=== PATIENT | female | born 1935 | race Caucasian/White ===

== ENCOUNTER → 2016-08-25 | Outpatient (CLI) | payer OTHER, BC ==
[~2016-08-25] MED LIST: ANTIVERT25 MG PO; ATORVASTATIN CA40 MG PO; BAYER CHEWABLE81 MG PO; CALCIUM 500 +1 EAC5 PO; CARDIZEM CD120 MG PO; CENTRUM SILVER1 EAC4 PO; COUMADIN 3 MG TA3 M1 PO; DEMADEX20 MG PO; ELIQUIS5 MG PO; LEXAPRO 10 MG T10 M2 PO; LIPITOR80 MG PO; METOPROLOL SUCC50 MG PO; MIRALAX17 GM PO; NIACIN 500 MG500 M1 PO; NIACIN500 MG PO; OXYGEN MISCELL; PACERONE 200 M200 M1 PO; PROBIOTIC1 EAC2 PO; PROLIA60 MG/1 ML SUBQ; SPIRIVA INH; TYLENOL325 MG PO; VERAPAMIL E.R240 M1 PO; VITAMIN D1000 UNI1 PO; VITAMIN D3400 UNIT PO; ZEGERID OTC 201 EACH PO
== END ==
LOC: RAD 12:44
DX: J44.9 Chronic obstructive pulmonary disease, unspecified (principal)

== ENCOUNTER → 2016-10-07 | Outpatient (CLI) | payer OTHER, BC ==
--- NOTE | ~2016-10-07 | SLE ---
[facility] [address] [address] POLYSOMNOGRAPHY STUDY Name: JORGE MADERA Room #: REG [facility]#: [id number] Admission: 10/07/16 Attend Phys: Yessenia Delong MD Discharge: Date of : 33 Report #: [id number] THIS REPORT FOR: //name// CC: Yessenia Navarro MD INDICATIONS: The patient with a history of COPD, on 4 liters at night; positive fatigue, snoring and daytime somnolence; paroxysmal atrial fibrillation. COMMENTS: Started on room air for 15.7 minutes, no sleep was seen; then on 1 liter, the patient was seen for 153 minutes and then at 3-1/2 liters for 362 minutes of which 37% was in sleep. Sleep efficiency 25%. Central apnea 0, obstructive apnea 0, hypopnea 2. Apnea-hypopnea index 0.9 events per sleep hour. Non-REM AHI 0.6, REM AHI 1.7. Supine AHI 0, right lateral 2 events per sleep hour. 12% of time in snoring. Periodic limb movement with arousal index of 46 events per sleep hour. Low oxygen saturation 90%. IMPRESSION: 1. Periodic limb movement with arousal index 46 events per sleep hour.G47.61 2. Significant snoring. 3. This study does not suggest obstructive sleep apnea. 4. Wheezing noted and multiple bathroom interruptions. 5. Usually sleeps in a recliner. SUGGESTIONS: 1. In addition to specific therapy, the patient should be cautioned regarding driving or operating dangerous machinery unless fully alert. 2. Further discussion regarding oxygen use per Dr. Navarro; on this night, 3-1/2 liters was used to maintain saturation. 3. Daytime ABG and lung function and x-ray are recommended. 4. If signs and symptoms not improved with therapy, further evaluation is recommended. Please do not hesitate to contact me if I may be of further assistance. <ELECTRONICALLY SIGNED> By: Yessenia Delong MD 10/15/16 1455 2340 0011 Yessenia Delong MD /nt
== END ==
LOC: SLEEPLAB 15:43
DX: G47.33 Obstructive sleep apnea (adult) (pediatric) (principal)

== ENCOUNTER 2016-10-22 14:21 | Inpatient (IN) | payer OTHER, BC ==
[~2016-10-22] VITALS: Ht 152.4 cm; Wt 64.2 kg
--- NOTE | ~2016-10-22 | TEE ---
[facility] [address] [place] [address] TRANSESOPHAGEAL ECHOCARDIOGRAM Name: JORGE MADERA Room #: 450-P [facility] IN M.R.#: [id number] Admission: 10/22/16 Attend Phys: Brady Alan, Discharge: Date of : 34 Date of Service: 10/27/16 0906 Report #: [id number] THIS REPORT FOR: //name// APPROVED REPORT Study performed: 10/27/2016 07:50:55 EXAM: Comprehensive 2D, Doppler, and color-flow Echocardiogram Patient Location: [facility] Room #: [facility] Status: routine BSA: 1.61 HR: 60 bpm BP: 135/47 mmHg Rhythm: Pacemaker Other Information Study Quality: Adequate Indications Rule out endocarditis. Hx: pacemaker Procedure After obtaining informed consent, patient underwent transesophageal echo in the [employer]. Type of Sedation : Conscious Sedation Sedation was administered by Silvia Higuera RN. Sedation was achieved intravenously with: Versed (2) Fentanyl (50) Transesophageal probe was inserted and advanced into esophagus without difficulty by Seb Soni MD. The GILA was performed without complications. Throughout the procedure, the blood pressure, pulse oximetry, cardiac rhythm, and rate were monitored. The patient tolerated the procedure without adverse effects. Recovery from conscious sedation was uneventful and vital signs were stable. Left Ventricle The left ventricle is normal size. There is normal LV segmental wall motion. Left ventricular systolic function is normal. LVEF is 60-65%. Right Ventricle [facility] [address] [place] [address] TRANSESOPHAGEAL ECHOCARDIOGRAM Name: JORGE MADERA Room #: 450-P ADM IN M.R.#: [id number] Admission: 10/22/16 Attend Phys: Brady Alan, Discharge: Date of : 34 Date of Service: 10/27/16 0906 Report #: [id number] The right ventricle is normal size. The right ventricular systolic function is normal. Atria Left atrium is dilated. No masses or clots in left atrium or left atrial appendage. Right atrium is dilated. Aortic Valve Aortic valve is calcified, trileaflet. Trace aortic regurgitation. Mild aortic stenosis per transthoracic echo. Mitral Valve Thickened, calcified mitral leaflets. Moderate mitral annular calcification. Calcified submitral apparatus. Previously seen mobile, calcified mass consistent with calcified submitral chordal structure Mild-moderate mitral regurgitation. Mild to moderate mitral stenosis per transthoracic echo. Tricuspid Valve The tricuspid valve is normal in structure. Pulmonic Valve The pulmonary valve is normal in structure. Great Vessels The aortic root is normal in size. Mild to moderate calcific atherosclerotic changes Pericardium There is no pericardial effusion. Critical Notification Physician Notified <Conclusion> Left ventricular systolic function is normal. There is normal LV segmental wall motion. LVEF 60-65%. Left atrium is dilated. No masses or clots in left atrium or left atrial appendage. Aortic valve is calcified, trileaflet. Trace aortic regurgitation. Mild aortic stenosis per transthoracic echo. Thickened, calcified mitral leaflets. Moderate mitral annular calcification. Calcified submitral apparatus. Previously seen mobile, calcified mass consistent with calcified submitral chordal structure Mild-moderate mitral regurgitation. Mild to moderate mitral stenosis [facility] [address] [place] [address] TRANSESOPHAGEAL ECHOCARDIOGRAM Name: JORGE MADERA Room #: 450-P [facility] IN [facility]#: [id number] Admission: 10/22/16 Attend Phys: Brady Alan, Discharge: Date of : 34 Date of Service: 10/27/16905 Report #: [id number] per transthoracic echo. There is no pericardial effusion. <ELECTRONICALLY SIGNED> By: Seb Soni MD, FACC 10/27/16905 5 5 Seb Soni MD, FACC /INF
--- NOTE | ~2016-10-22 | P ---
[facility] [place] [address] PROCEDURE REPORT Name: JORGE MADERA Room #: 450-P ADM IN M.R.#: [id number] Admission: 10/22/16 Attend Phys: Brady Alan DO Discharge: Date of : 34 Report #: [id number] THIS REPORT FOR: //name// CC: Quan March DO DATE OF SERVICE: 10/23/2016 DATE OF SERVICE: 10/23/2016 PROCEDURE PERFORMED: Upper endoscopy. HISTORY OF PRESENT ILLNESS: The patient is an 81-year-old female with a history of COPD who was admitted for increasing shortness of breath. On admission, she was noted to have hemoglobin of 7.6, today this fell to 6.7. She denies any obvious bright red blood per rectum or melena, no previous history of GI bleed. She did have a colonoscopy in 2009, which showed diverticulosis, but otherwise normal. She does report ibuprofen at times, she is on Eliquis, last dose being yesterday. Plan is for EGD. DESCRIPTION OF PROCEDURE: The risks and benefits of the procedure were explained to the patient, those risks including but not limited to bleeding, perforation, the risk of sedation. She understood these risks and gave informed consent. Sedation was given using ketamine and propofol per anesthesia. Next, using a standard [facility] upper endoscope, the scope was placed in the patient's mouth and advanced under direct vision through the esophagus, stomach and into the second portion of the duodenum. The esophagus was normal throughout. The GE junction was normal. Overall, the gastric mucosa was normal. No evidence of ulcerations or erosions. No blood was noted throughout the exam today. The pylorus was normal and patent. The duodenal bulb, first and second portion were all normal. The scope was then withdrawn and the procedure terminated. The patient tolerated the procedure well. IMPRESSION: Normal upper endoscopy. RECOMMENDATIONS: 1. Agree with transfusion, which has been ordered for today. 2. Hemoccult test stools, if positive, may need to consider colonoscopy or small bowel workup in the near future. [facility] [address] [place] [address] PROCEDURE REPORT Name: JORGE MADERA Room #: 450-P [facility] IN M.R.#: [id number] Admission: 10/22/16 Attend Phys: Brady Alan DO Discharge: Date of : 34 Report #: [id number] Thank you for allowing me to participate in her care. <ELECTRONICALLY SIGNED> By: Jos Antonio MD 10/28/16 0954 1130 1231 Jos Antonio MD /nt
--- NOTE | ~2016-10-22 | S ---
[facility] [place] [address] [address] [place] [address] SURGICAL PATH RPT PROCEDURE Name: FELECIA MADERA Room #: 450-P ADM IN M.R.#: [id number] Admission: 10/22/16 Date of : 34 Discharge: Report #: [id number] Path Case #: [id number] PATHOLOGY REPORT COLLECTION DATE: 10/26/2016 RECEIVED DATE: 10/26/2016 SUBMITTING PHYS: Dr. Brady Alan OTHER PHYS: Dr. Quan Winchester SPECIMEN(S) RECEIVED: A.Peripheral smear * * * * * * * * * * * * FINAL DIAGNOSIS: Peripheral blood smear: - Mild to moderate microcytic anemia. (see comment) COMMENT: Overall, the peripheral blood has mild to moderate microcytic anemia. The WBC and platelet counts are within the normal reference ranges. The WBC count is borderline mildly elevated with a borderline neutrophilia. The etiology of the findings is unclear entirely on slide review. Potential causes of microcytic anemia include iron deficiency and thalassemia. Correlation with clinical history and additional laboratory data is recommended. (CLW:; 10/27/2016) PATHOLOGIST: Evelyne Ryan M.D. REPORT ELECTRONICALLY SIGNED BY: Evelyne Ryan M.D. DATE/TIME: 10/27/2016 23:00 * * * * * * * * * * * * MICROSCOPIC DESCRIPTION: CBC Data (10/26/16): WBC 10,400 /uL, RBC 4.17, hemoglobin 9.9 g/dL, hematocrit 31.9%, MCV 76.4 fL, MCH 23.9 pg, MCHC 31.2 g/dL, RDW 21.5%. Platelet count 285,000 /uL. Manual white blood cell differential: segs 79%, lymphs 11%, monos 8%, and eos 2%. Peripheral Blood Smear: Cytomorphological examination of the Rodriguez's stained peripheral blood smear confirms the provided data. Red blood cells show mild to moderate microcytic anemia with mild anisocytosis. No significant poikilocytosis is identified. No schistocytes or microspherocytes are seen. White blood cells are predominantly segmented neutrophils and are without significant dyspoiesis or significant left shift. Lymphocytes are predominantly small, round, and mature appearing with condensed chromatin and scant cytoplasm with admixed large granular lymphocytes. Monocytes are mature. Platelets are adequate in number [address] [address] SURGICAL PATH RPT PROCEDURE Name: FELECIA MADERA Room #: 450-P ADM IN M.R.#: [id number] Admission: 10/22/16 Date of : 34 Discharge: Report #: [id number] Path Case #: [id number] and mainly normal in morphology with rare larger platelets noted. GROSS PATHOLOGY: Received are two Rodriguez's stained peripheral blood smears and two unstained peripheral blood smears all labeled "Felecia Madera." (CLW:; 10/27/2016) CLINICAL HISTORY: 81 year-old woman with anemia. Morphologic review of the peripheral blood smear is requested by the patient's physician. INITIAL CPT CODE(S): A; NC Professional services performed by [facility] at [facility] [address], [place] [address] Technical services performed by [facility] at [address] [place] [address], [address], [place] [address]. [facility] [address] [place] [address] PHONE: [phone] DIRECTOR: Valdez Rosas M.D. * * * END OF REPORT * * *
--- NOTE | ~2016-10-22 | 2DMMODE ---
[facility] [address] [place] [address] 2 D/M-MODE ECHOCARDIOGRAM Name: JORGE MADERA Room #: 450-P [facility] IN M.R.#: [id number] Admission: 10/22/16 Attend Phys: Brady Alan, Discharge: Date of : 34 Date of Service: 10/23/16 1706 Report #: [id number] THIS REPORT FOR: //name// APPROVED REPORT Study performed: 10/23/2016 13:55:11 EXAM: Comprehensive 2D, Doppler, and color-flow Echocardiogram Patient Location: Bedside Room #: 450 Status: routine BSA: 1.61 HR: 60 bpm BP: 112/46 mmHg Other Information Study Quality: Good Indications Congestive Heart Failure COPD Atrial Fibrillation Pacemaker 2D Dimensions RVDd: 33.14 mm LVEF(%): 67.45 (>50%) IVSd: 10.68 (7-11mm) LVOT Diam: 17.99 (18-24mm) LVDd: 49.12 mm PWd: 8.86 (7-11mm) Ascending Ao: 25.86 (22-36mm) LVDs: 30.67 (25-40mm) Aortic Root: 27.10 mm IVC: 19.00 mm Rubio's LVEF: 67.45 % Volumes Left Atrial Volume (Systole) Single Plane 4CH: 122.30 mL Single Plane 2CH: 122.71 mL LA ESV Index: 85.00 mL/m2 Aortic Valve AoV Peak Yasmany.: 2.88 m/s AO Peak Gr.: 33.29 mmHg LVOT Max P.12 mmHg AO Mean Gr.: 17.87 mmHg LVOT Mean P.91 mmHg AO V2 Mean: 1.98 m/s LVOT Max V: 1.33 m/s AO V2 VTI: 74.80 cm LVOT Mean V: 1.04 m/s KINJAL (VTI): 1.26 cm2 LVOT V1 VTI: 36.99 cm [facility] Mobile Location, [place] [address] 2 D/M-MODE ECHOCARDIOGRAM Name: JORGE MADERA Room #: 450-P [facility] IN .R.#: [id number] Admission: 10/22/16 Attend Phys: Brady Alan, Discharge: Date of : 34 Date of Service: 10/23/16 1706 Report #: [id number] KINJAL Vmax: 1.17 cm2 SV (LVOT): 94.00 mL Mitral Valve MV Peak Gr.: 24.77 mmHg MV Mean Gr.: 7.70 mmHg E/A Ratio: 2.3 MV Decel. Time: 403.56 ms MV E Max Yasmany.: 1.90 m/s MV A Yasmany.: 0.84 m/s MV Max Yasmany.: 2.49 m/s MV Mean Yasmany.: 1.23 m/s MV VTI: 758.70 mm MVA VTI: 123.90 mm2 MV PHT: 117.03 ms MVA (PHT): 2.29 cm2 IVRT: 129.18 ms Pulmonary Valve PV Peak Yasmany.: 1.11 m/s PV Peak Gr.: 4.97 mmHg Pulmonary Vein P Vein S: 0.49 m/s P Vein A: 0.24 m/s P Vein D: 0.50 m/s P Vein A Dur.: 138.4 msec P Vein S/D Ratio: 0.98 Tricuspid Valve TR Peak Yasmany.: 3.43 m/s TR Peak Gr.: 47.00 mmHg PA Pressure: 52.00 mmHg Left Ventricle The left ventricle is normal size. There is normal LV segmental wall motion. There is normal left ventricular wall thickness. The left ventricular systolic function is normal. The left ventricular ejection fraction is within the normal range. LVEF is 60-65%. Left atrial pressure is elevated. Right Ventricle The right ventricle is normal size. The right ventricular systolic function is normal. Atria Left atrium is dilated. Right atrium is dilated. Aortic Valve Aortic valve is calcified, trileaflet. Trace aortic regurgitation. [facility] [address] [place] [address] 2 D/M-MODE ECHOCARDIOGRAM Name: JORGE MADERA Room #: 450-P [facility] IN M.R.#: [id number] Admission: 10/22/16 Attend Phys: Brady Alan, Discharge: Date of : 34 Date of Service: 10/23/16 1706 Report #: [id number] Calculated aortic valve area is 1.2 cm2 with maximum pressure gradient of 33 mmHg and mean pressure gradient of 18 mmHg. Mitral Valve Dense mitral annular calcification. Calcified leaflets. Mobile, irregular bordered, oval and densely calcified mass on posterior mitral leaflet consistent with vegetation. Calcified, disrupted submitral chordal structure also among differential condiserations. Mild mitral regurgitation. Mild to moderate mitral stenosis. (Peak gradient 25mm, mean 8mm) Tricuspid Valve The tricuspid valve is normal in structure. Trace tricuspid regurgitation. Pulmonic Valve The pulmonary valve is normal in structure. Trace pulmonic regurgitation. Great Vessels The aortic root is normal in size. IVC is normal in size and collapses >50% with inspiration. Pericardium There is no pericardial effusion. Critical Notification Physician Notified <Conclusion> The left ventricular systolic function is normal. There is normal LV segmental wall motion. LVEF 60-65%. Both atria are dilated. Aortic valve is calcified, trileaflet. Calculated aortic valve area is 1.2 cm2 with maximum pressure gradient of 33 mmHg and mean pressure gradient of 18 mmHg. Mild stenosis Dense mitral annular calcification. Calcified leaflets. Mobile, irregular bordered, oval and densely calcified mass on posterior mitral leaflet consistent with vegetation. Calcified, disrupted submitral chordal structure also among differential condiserations. Mild mitral regurgitation. Mild to moderate mitral stenosis. (Peak gradient 25mm, mean 8mm) [address] [address] 2 D/M-MODE ECHOCARDIOGRAM Name: JORGE MADERA Room #: 450-P [facility] IN M.R.#: [id number] Admission: 10/22/16 Attend Phys: Brady Alan, Discharge: Date of : 34 Date of Service: 10/23/161705 Report #: [id number] Pulmonary artery pressure of 55mmHg There is no pericardial effusion. <ELECTRONICALLY SIGNED> By: Seb Soni MD, FACC 10/23/161705 05 05 Seb Soni MD, FACC /INF
--- NOTE | ~2016-10-22 | EKG ---
[address] [place] [address] ELECTROCARDIOGRAM REPORT Name: JORGE MADERA Room #: 450-P ADM IN M.R.#: [id number] Admission: 10/22/16 Attend Phys: Brady Alan DO Discharge: Date of : 34 Report #: [id number] THIS REPORT FOR: //name// [facility] ED Test Date: 2016-10-22 Test Time: 16:06:22 Pat Name: JORGE MADERA Department: Room: [facility] Gender: F [employer] Operator: [id number] : 1935 Requested By: Iggy Crane Order Number: [id number] MD: Seb Soni Measurements Intervals [place] Rate: 60 P: 111 [place]: 145 QRS: -77 QRSD: 166 T: 100 QT: 511 QTc: 511 Interpretive Statements A-V dual-paced complexes w/ some inhibition No further analysis attempted due to paced rhythm Compared to ECG 12/02/2015 21:21:17 Atrial-sensed ventricular-paced complex(es) or rhythm no longer present Electronically Signed On 10-23-2016 8:11:42 CDT by Seb Soni [email or web address] <ELECTRONICALLY SIGNED> By: Seb Soni MD, [facility] 10/23/16 0811 1606 1606 Seb Soni MD, [facility] /EPI
--- NOTE | ~2016-10-22 | HC ---
[facility] [place] [address] CONSULTATION Name: JORGE MADERA Room #: 450-P [facility] IN M.R.#: [id number] Admission: 10/22/16 Attend Phys: Brady Alan DO Discharge: 10/28/16 Date of : 34 Report #: [id number] THIS REPORT FOR: //name// CC: Quan Alan DATE OF SERVICE: 10/28/2016 HISTORY OF PRESENT ILLNESS: The patient is an 81-year-old white female with history of COPD, congestive heart failure, acute renal insufficiency, admitted with increased shortness of breath. She has been treated for her congestive heart failure. She was noted to have symptomatic microcytic anemia with GI involved. She had sick sinus syndrome and has had prior pacemaker placement. We are seeing her in rehabilitation medicine consultation. PAST MEDICAL HISTORY: Includes hypertension, rheumatic fever in 1944, pelvic prolapse, pacemaker, COPD, AFib, hyperlipidemia, tonsillectomy. She was on oxygen premorbidly. MEDICATIONS: Please see the full medication listing. ALLERGIES: No known drug allergies. HABITS: Former smoker, 50 pack-year history. No history of alcohol abuse. SOCIAL HISTORY: Lives in a house alone, one step, was on O2 premorbidly, used a walker. She does have an involved daughter and son. REVIEW OF SYSTEMS: Did not offer any current complaints of chest pain, shortness of breath, or abdominal discomfort. No focal extremity pain complaints. PHYSICAL EXAMINATION: GENERAL: Pleasant 81-year-old white female, appeared little younger than stated age. VITAL SIGNS: Her last recorded temperature 98.3, pulse 60, respirations 18, and blood pressure 149/59. NEUROLOGIC: She is alert, pleasant, and appears to be a good historian. Facies are symmetric. Nasal prong O2 is in place. Functional range of motion of both upper extremities with strength grade 4/5 to 4+/5. DTRs are trace to 1. Lower extremities, no focal calf swelling, no distal lower extremity edema, functional range of motion with strength grade 4+/5. Tone appeared intact. No clonus. She was contact guard with sit to stand. Gait was 130 feet. She did need a little assistance without a device. Physical therapy noted that she progressed gait and no assist device x 120 feet with contact guard to min assist for balance. Therapy thought that she may benefit from the use of a walker upon [address] [address] CONSULTATION Name: SANTYJORGE Room #: 450-P [facility] IN ..#: [id number] Admission: 10/22/16 Attend Phys: Brady Alan DO Discharge: 10/28/16 Date of : 34 Report #: [id number] initially returning home and that she would benefit from home healthcare therapies. ASSESSMENT: An 83-year-old female with the following problem list: 1. Generalized weakness and debilitation, which has improved. 2. Acute on chronic diastolic congestive heart failure. 3. Atrial fibrillation. 4. Sick sinus syndrome. 5. Symptomatic microcytic anemia. 6. Renal insufficiency. 7. Chronic obstructive pulmonary disease with chronic home O2 use. PLAN: See above physical therapy input. She is progressing with her functional mobility and supportive family. I would anticipate she should be able to return back to the home setting with the walker initially and home health care. Note that her discharge plans are already underway. Thank you for asking us to assist in this patient's care. By: 1137 0218 Smith Pollard MD /PMT
[2016-10-22 14:21] VITALS: BP 125/39
[2016-10-22 16:04] LABS: HEMATOCRIT 24.7 % (37.0-47.0); HEMOGLOBIN 7.6 gm/dL (12.0-15.0); MCH 21.7 pg (26.0-34.0); MCHC 30.6 g/dL (28.0-37.0); MCV 71.1 fL (80.0-100.0); PLATELET COUNT 358 thou/uL (150-400); RBC 3.48 mil/uL (4.20-5.00); RDW 19.2 % (10.5-14.5); WBC 9.4 thou/uL (4.0-11.0)
[2016-10-22 16:12] LABS: ANION GAP 6 mmol/L (7-16); BUN 29 mg/dL (7-18); CHLORIDE 99 mmol/L (98-107); CO2 32 mmol/L (21-32); CREATININE 1.1 mg/dL (0.6-1.0); GLUCOSE 103 mg/dL (74-106); POTASSIUM 3.5 mmol/L (3.5-5.1); SODIUM 137 mmol/L (136-145)
[2016-10-22 16:13] LABS: MANUAL DIFF YES
[2016-10-22 16:21] LABS: TROPONIN-I < 0.04 ng/mL (<0.04-0.07)
[2016-10-22 16:24] LABS: ABG SAMPLE TYPE ARTERIAL; BE(vivo) 8.2 mmol/L (-2 to +3); HCO3 32.5 mmol/L (22.0-26.0); O2(CT) 10.8 mL/dL (15.0-23.0); O2Hb 94.8 % (92.0-98.0); STICK SITE R.RADIAL; pH 7.477 (7.360-7.450); sO2 96.9 % (92.0-98.0); tCO2 33.9 mmol/L (24.0-30.0)
[2016-10-22 16:47] LABS: ABSOLUTE NEUTROPHILS 8.3 thou/uL (1.4-8.2); ANISOCYTOSIS 2+; TOTAL CELL COUNT 100
[2016-10-22 16:48] LABS: POLYCHROMASIA 1+
[2016-10-22 16:49] LABS: HYPOCHROMASIA 3+
[2016-10-22 18:23] VITALS: BP 125/39
[2016-10-22 18:34] VITALS: BP 140/45
[2016-10-22 19:20] VITALS: BP 127/42
[2016-10-22 23:00] LABS: HEMATOCRIT 21.5 % (37.0-47.0)
[2016-10-22 23:01] LABS: HEMOGLOBIN 6.7 gm/dL (12.0-15.0)
[2016-10-23 00:29] VITALS: BP 103/39
[2016-10-23 05:03] VITALS: BP 112/46
[2016-10-23 05:37] LABS: HEMOGLOBIN 6.6 gm/dL (12.0-15.0)
[2016-10-23 05:38] LABS: HEMATOCRIT 21.5 % (37.0-47.0); MCH 21.7 pg (26.0-34.0); MCHC 30.5 g/dL (28.0-37.0); MCV 71.3 fL (80.0-100.0); PLATELET COUNT 284 thou/uL (150-400); RBC 3.02 mil/uL (4.20-5.00); RDW 19.4 % (10.5-14.5); WBC 8.6 thou/uL (4.0-11.0)
[2016-10-23 05:53] LABS: ALBUMIN 2.6 g/dL (3.4-5.0); CALCIUM 9.3 mg/dL (8.5-10.1); CREATININE 1.1 mg/dL (0.6-1.0); POTASSIUM 3.3 mmol/L (3.5-5.1); TOTAL BILIRUBIN 0.5 mg/dL (<0.1-1.0); TOTAL PROTEIN 6.3 g/dL (6.4-8.2)
[2016-10-23 06:30] LABS: MANUAL DIFF YES
[2016-10-23 08:29] LABS: ABSOLUTE NEUTROPHILS 6.6 thou/uL (1.4-8.2); ANISOCYTOSIS 2+; HYPOCHROMASIA 2+; MICROCYTES 3+; PLATELET ESTIMATE NORMAL; TOTAL CELL COUNT 100
[2016-10-23 10:54] LABS: % SATURATION 5 % (20-39); IRON 17 ug/dL (50-170); TIBC 333 ug/dL (250-450); UIBC 316 ug/dL
[2016-10-23 15:59] VITALS: BP 121/38; BP 126/52
[2016-10-23 20:00] VITALS: BP 126/52
[2016-10-23 20:45] VITALS: BP 113/62; BP 127/47; BP 152/65
[2016-10-23 23:11] VITALS: BP 152/65
[2016-10-24 03:08] VITALS: BP 152/69
[2016-10-24 08:11] VITALS: BP 139/51
[2016-10-24 08:57] LABS: HEMATOCRIT 29.9 % (37.0-47.0); MCH 24.5 pg (26.0-34.0); MCHC 32.7 g/dL (28.0-37.0); MCV 75.1 fL (80.0-100.0); PLATELET COUNT 293 thou/uL (150-400); RBC 3.98 mil/uL (4.20-5.00); RDW 20.9 % (10.5-14.5); WBC 12.7 thou/uL (4.0-11.0)
[2016-10-24 09:03] LABS: HEMOGLOBIN 9.8 gm/dL (12.0-15.0); MANUAL DIFF YES
[2016-10-24 10:03] LABS: ABSOLUTE NEUTROPHILS 10.8 thou/uL (1.4-8.2); TOTAL CELL COUNT 100
[2016-10-24 10:04] LABS: ANISOCYTOSIS 2+
[2016-10-24 12:10] VITALS: BP 135/53
[2016-10-24 16:32] VITALS: BP 124/42
[2016-10-24 19:53] VITALS: BP 120/41
[2016-10-25 04:35] VITALS: BP 135/52
[2016-10-25 05:21] LABS: CALCIUM 9.6 mg/dL (8.5-10.1); CREATININE 0.9 mg/dL (0.6-1.0)
[2016-10-25 05:31] LABS: POTASSIUM 2.7 mmol/L (3.5-5.1)
[2016-10-25 08:00] VITALS: BP 140/56
[2016-10-25 09:23] LABS: HEMATOCRIT 33.1 % (37.0-47.0); HEMOGLOBIN 10.4 gm/dL (12.0-15.0); MCH 23.8 pg (26.0-34.0); MCHC 31.5 g/dL (28.0-37.0); MCV 75.5 fL (80.0-100.0); PLATELET COUNT 328 thou/uL (150-400); RBC 4.38 mil/uL (4.20-5.00); RDW 21.4 % (10.5-14.5); WBC 11.3 thou/uL (4.0-11.0)
[2016-10-25 09:25] LABS: MANUAL DIFF YES
[2016-10-25 09:31] LABS: CALCIUM 10.2 mg/dL (8.5-10.1); CREATININE 0.9 mg/dL (0.6-1.0); POTASSIUM 3.4 mmol/L (3.5-5.1)
[2016-10-25 09:45] LABS: ABSOLUTE NEUTROPHILS 9.3 thou/uL (1.4-8.2); ANISOCYTOSIS 2+; HYPOCHROMASIA 1+; MICROCYTES 2+; TOTAL CELL COUNT 100
[2016-10-25 11:09] VITALS: BP 130/60
[2016-10-25 16:01] VITALS: BP 104/75
[2016-10-25 19:00] VITALS: BP 106/50
[2016-10-26 05:45] VITALS: BP 132/69
[2016-10-26 06:28] LABS: HEMATOCRIT 31.9 % (37.0-47.0); HEMOGLOBIN 9.9 gm/dL (12.0-15.0); MCH 23.9 pg (26.0-34.0); MCHC 31.2 g/dL (28.0-37.0); MCV 76.4 fL (80.0-100.0); PLATELET COUNT 285 thou/uL (150-400); RBC 4.17 mil/uL (4.20-5.00); RDW 21.5 % (10.5-14.5); WBC 10.4 thou/uL (4.0-11.0)
[2016-10-26 06:38] LABS: MANUAL DIFF YES
[2016-10-26 06:40] LABS: CALCIUM 9.9 mg/dL (8.5-10.1); CREATININE 0.9 mg/dL (0.6-1.0); POTASSIUM 3.1 mmol/L (3.5-5.1)
[2016-10-26 07:46] VITALS: BP 134/46
[2016-10-26 08:37] LABS: ABSOLUTE NEUTROPHILS 8.2 thou/uL (1.4-8.2); ANISOCYTOSIS 1+; HYPOCHROMASIA 2+; MICROCYTES 2+; PLATELET ESTIMATE NORMAL; POLYCHROMASIA SLIGHT; TOTAL CELL COUNT 100
[2016-10-26 11:48] VITALS: BP 131/49
[2016-10-26 14:55] LABS: % SATURATION 12 % (20-39); IRON 32 ug/dL (50-170); TIBC 262 ug/dL (250-450); UIBC 230 ug/dL
[2016-10-26 16:28] VITALS: BP 113/40
[2016-10-26 19:06] VITALS: BP 112/36
[2016-10-27 03:16] VITALS: BP 139/56
[2016-10-27 03:43] LABS: HEMATOCRIT 30.4 % (37.0-47.0); HEMOGLOBIN 9.8 gm/dL (12.0-15.0); MCH 24.5 pg (26.0-34.0); MCHC 32.2 g/dL (28.0-37.0); MCV 76.1 fL (80.0-100.0); PLATELET COUNT 302 thou/uL (150-400); RDW 22.5 % (10.5-14.5); WBC 9.3 thou/uL (4.0-11.0)
[2016-10-27 03:46] LABS: MANUAL DIFF YES
[2016-10-27 04:10] LABS: CALCIUM 9.8 mg/dL (8.5-10.1); POTASSIUM 3.3 mmol/L (3.5-5.1)
[2016-10-27 08:22] VITALS: BP 135/47
[2016-10-27 09:24] LABS: ABSOLUTE NEUTROPHILS 7.3 thou/uL (1.4-8.2); PLATELET ESTIMATE NORMAL; TOTAL CELL COUNT 100
[2016-10-27 09:25] LABS: ANISOCYTOSIS 1+; MICROCYTES 2+
[2016-10-27 10:22] VITALS: BP 138/47
[2016-10-27 14:05] VITALS: BP 117/42
[2016-10-27 15:51] VITALS: BP 111/41
[2016-10-27 20:15] VITALS: BP 131/53
[2016-10-28 03:33] VITALS: BP 120/46
[2016-10-28 04:52] LABS: HEMOGLOBIN 9.5 gm/dL (12.0-15.0); MCH 24.1 pg (26.0-34.0); MCHC 31.7 g/dL (28.0-37.0); MCV 75.9 fL (80.0-100.0); PLATELET COUNT 280 thou/uL (150-400); RBC 3.95 mil/uL (4.20-5.00); RDW 22.9 % (10.5-14.5); WBC 8.4 thou/uL (4.0-11.0)
[2016-10-28 04:54] LABS: MANUAL DIFF YES
[2016-10-28 05:10] LABS: ALBUMIN 2.5 g/dL (3.4-5.0); CALCIUM 9.9 mg/dL (8.5-10.1); POTASSIUM 3.4 mmol/L (3.5-5.1); TOTAL BILIRUBIN 0.5 mg/dL (<0.1-1.0); TOTAL PROTEIN 6.6 g/dL (6.4-8.2)
[2016-10-28 07:21] VITALS: BP 149/59
[2016-10-28 07:50] VITALS: BP 146/49
[2016-10-28 09:00] LABS: ABSOLUTE NEUTROPHILS 6.1 thou/uL (1.4-8.2); ANISOCYTOSIS 2+; HYPOCHROMASIA 2+; PLATELET ESTIMATE NORMAL; TOTAL CELL COUNT 100
[2016-10-28] MEDS ORDERED: COZAAR 50 MG TA50 M1 PO (11:33)
[2016-10-28 12:50] VITALS: BP 151/48
[2016-10-28 15:43] VITALS: BP 151/48
[2016-10-28 16:40] VITALS: BP 151/48
== END 2016-10-28 17:59 | disposition home health service (06) | DRG 871 ==
LOC: ER 14:21 → 4W 17:38 → EROBS 17:38 → 4W 18:35 → ENTRNSPT 10-28 17:58 → 4W 10-28 17:59
PROVIDERS: Emergency Medicine; Family Medicine; Internal Medicine Infectious Disease; Nurse Practitioner; Nurse Practitioner Family; Specialist
PROC: 0DJ08ZZ Inspection of Upper Intestinal Tract, Via Natural or Artificial Opening Endoscopic (ICD-10-PCS; principal; 2016-10-23)
PROC: 30233N1 Transfusion of Nonautologous Red Blood Cells into Peripheral Vein, Percutaneous Approach (ICD-10-PCS; 2016-10-23)
DX: A41.9 Sepsis, unspecified organism (principal); I50.33 Acute on chronic diastolic (congestive) heart failure; I38 Endocarditis, valve unspecified; M19.90 Unspecified osteoarthritis, unspecified site; J44.9 Chronic obstructive pulmonary disease, unspecified; I11.0 Hypertensive heart disease with heart failure; I48.91 Unspecified atrial fibrillation; E78.5 Hyperlipidemia, unspecified; G47.33 Obstructive sleep apnea (adult) (pediatric); I49.5 Sick sinus syndrome; Z66 Do not resuscitate; D50.9 Iron deficiency anemia, unspecified; K57.90 Diverticulosis of intestine, part unspecified, without perforation or abscess without bleeding; I05.9 Rheumatic mitral valve disease, unspecified; I25.10 Atherosclerotic heart disease of native coronary artery without angina pectoris; E78.00 Pure hypercholesterolemia, unspecified; N28.9 Disorder of kidney and ureter, unspecified; E87.6 Hypokalemia; Z90.710 Acquired absence of both cervix and uterus; Z95.0 Presence of cardiac pacemaker; Z99.81 Dependence on supplemental oxygen; Z87.891 Personal history of nicotine dependence; Z90.89 Acquired absence of other organs
CPT/HCPCS: 10045; 62110; 62900; 70005

== ENCOUNTER → 2017-12-06 | Outpatient (CLI) | payer OTHER, BC ==
[~2017-12-06] MED LIST changes: +COZAAR 50 MG TA50 M1 PO
== END ==
LOC: RAD 13:59
DX: J44.9 Chronic obstructive pulmonary disease, unspecified (principal); I51.7 Cardiomegaly; I70.0 Atherosclerosis of aorta; J96.11 Chronic respiratory failure with hypoxia

== ENCOUNTER → 2018-06-20 | Outpatient (CLI) | payer OTHER, BC | LOC: RAD 13:26 | DX: I11.0 Hypertensive heart disease with heart failure (principal); J84.10 Pulmonary fibrosis, unspecified; I50.9 Heart failure, unspecified; Z95.0 Presence of cardiac pacemaker ==

== ENCOUNTER 2019-08-21 19:02 | Inpatient (IN) | payer OTHER, BC ==
[~2019-08-21] VITALS: Ht 195.6 cm; Wt 96.2 kg
[2019-08-21 19:03] VITALS: BP 140/69
[2019-08-21 21:43] LABS: ABSOLUTE NEUTROPHILS 7.4 thou/uL (1.4-8.2); BASOPHILS 1.3 % (0.0-2.0); HEMATOCRIT 29.3 % (37.0-47.0); HEMOGLOBIN 8.9 gm/dL (12.0-15.0); LYMPHOCYTES 9.6 % (24.0-44.0); MCH 21.8 pg (26.0-34.0); MCHC 30.3 g/dL (28.0-37.0); MONOCYTES 7.7 % (1.0-8.0); PLATELET COUNT 345 thou/uL (150-400); POLYS 80.4 % (36.0-66.0); RBC 4.07 mil/uL (4.20-5.00); RDW 18.3 % (10.5-14.5); WBC 9.2 thou/uL (4.0-11.0)
[2019-08-21] MEDS ORDERED: LIPITOR40 MG PO (21:50)
[2019-08-21] MEDS ORDERED: ASA81BEC PO (21:51)
[2019-08-21 21:55] LABS: ANION GAP 6 mmol/L (7-16); BUN 31 mg/dL (7-18); CALCIUM 9.1 mg/dL (8.5-10.1); CHLORIDE 102 mmol/L (98-107); CO2 27 mmol/L (21-32); CREATININE 1.1 mg/dL (0.6-1.0); GLUCOSE 104 mg/dL (74-106); POTASSIUM 4.8 mmol/L (3.5-5.1); SODIUM 135 mmol/L (136-145)
[2019-08-21 21:59] LABS: TROPONIN-I <0.06 ng/mL (<0.06)
[2019-08-22 00:41] VITALS: BP 117/60
[2019-08-22 00:51] VITALS: BP 125/58
[2019-08-22 01:12] VITALS: BP 108/61
[2019-08-22 07:24] VITALS: BP 116/60
--- NOTE | 2019-08-22 08:03 | EKG ---
[facility] [place] [address] ELECTROCARDIOGRAM REPORT Name: JORGE MADERA Room #: 458-P ADM IN M.R.#: [id number] Admission: 08/22/19 Attend Phys: Chacorta Lugo Discharge: Date of : 34 Report #: [id number] THIS REPORT FOR: cc: Quan Winchester MD, Bernard O. MD Lundgren, Craig H. MD [facility] ~ THIS REPORT FOR: //name// [facility] ED Test Date: 2019-08-21 Test Time: 21:21:06 Pat Name: JORGE MADERA Department: Room: [employer] Gender: F Technical Maintenance Specialist: eva : 1935 Requested By: Iggy Crane Order Number: [id number] MD: Seb Soni Measurements Intervals [place] Rate: 84 P: 204 MS: 163 QRS: -67 QRSD: 167 T: 129 QT: 419 QTc: 496 Interpretive Statements Ventricular pacing Compared to ECG 10/22/2016 16:06:22 Ventricular pacing has replaced AV sequential pacing Electronically Signed On 08-22-2019 8:03:15 CDT by Seb Soni [email or web address] <ELECTRONICALLY SIGNED> By: Seb Soin MD, [facility] 08/22/1903 20 20 Seb Soni MD, [facility] /EPI
--- NOTE | 2019-08-22 11:38 | 2DMMODE ---
[facility] [address] [place] [address] 2 D/M-MODE ECHOCARDIOGRAM Name: JORGE MADERA Room #: 458-P ADM IN M.R.#: [id number] Admission: 08/22/19 Attend Phys: Chacorta Lugo Discharge: Date of : 34 Report #: [id number] THIS REPORT FOR: cc: Quan Winchester MD, Bernard O. MD Lammoglia, Francisco J. MD ~ APPROVED REPORT Study performed: 08/22/2019 09:27:59 EXAM: Comprehensive 2D, Doppler, and color-flow Echocardiogram Patient Location: Bedside Room #: 458 Status: routine BSA: 1.62 HR: 80 bpm BP: 116/60 mmHg Rhythm: Pacemaker Other Information Study Quality: Adequate Indications Congestive Heart Failure COPD Dyspnea Pacemaker CAD Hypertension/HDD 2D Dimensions IVSd: 10.32 (7-11mm) LVOT Diam: 17.53 (18-24mm) LVDd: 53.56 mm PWd: 10.38 (7-11mm) Ascending Ao: 28.35 (22-36mm) LVDs: 32.42 (25-40mm) Aortic Root: 27.22 mm IVC: 24.00 mm Aortic Valve AoV Peak Yasmany.: 3.26 m/s AO Peak Gr.: 42.63 mmHg LVOT Max P.93 mmHg AO Mean Gr.: 24.30 mmHg LVOT Mean P.59 mmHg AO V2 Mean: 2.24 m/s LVOT Max V: 1.22 m/s AO V2 VTI: 70.33 cm LVOT Mean V: 0.90 m/s KINJAL (VTI): 0.86 cm2 LVOT V1 VTI: 25.21 cm [facility] [place] [address] 2 D/M-MODE ECHOCARDIOGRAM Name: JORGE MADERA Room #: 458-P [facility] IN ..#: [id number] Admission: 08/22/19 Attend Phys: Chacorta Rojas Discharge: Date of : 34 Report #: [id number] KINJAL Vmax: 0.90 cm2 SV (LVOT): 60.79 mL Mitral Valve MV Peak Gr.: 15.76 mmHg MV Mean Gr.: 5.99 mmHg MV Max Yasmany.: 1.98 m/s MV Mean Yasmany.: 1.12 m/s MV VTI: 511.52 mm MVA VTI: 118.84 mm2 MV PHT: 87.78 ms MVA (PHT): 2.51 cm2 Pulmonary Valve PV Peak Yasmany.: 1.09 m/s PV Peak Gr.: 4.78 mmHg Tricuspid Valve TR Peak Yasmany.: 3.46 m/s TR Peak Gr.: 47.75 mmHg PA Pressure: 57.00 mmHg Left Ventricle The left ventricle is normal size. There is normal LV segmental wall motion. There is normal left ventricular wall thickness. The left ventricular systolic function is normal. The left ventricular ejection fraction is within the normal range. LVEF is 55-60%. This study is not technically sufficient to allow evaluation of the LV diastolic function. Right Ventricle The right ventricle is normal size. The right ventricular systolic function is normal. Pacemaker lead is present in the right ventricle. Atria Left atrium is dilated. Right atrium is dilated. Pacemaker lead is present in the right atrium. Aortic Valve The aortic valve is normal in structure. Aortic valve is calcified. Mild aortic regurgitation. Moderate aortic stenosis with a valve area of 1.0 Mitral Valve The mitral valve is normal in structure. There is mitral annular calcification with heavy calcification present. Mild mitral regurgitation. Moderate mitral stenosis. [address] [address] 2 D/M-MODE ECHOCARDIOGRAM Name: JORGE MADERA Room #: 458-P [facility] IN M.R.#: [id number] Admission: 08/22/19 Attend Phys: Chacorta Rojas Discharge: Date of : 34 Report #: [id number] Tricuspid Valve The tricuspid valve is normal in structure. There is mild tricuspid regurgitation. Estimated PAP 57 mmHg. There is moderate pulmonary hypertension. Pulmonic Valve The pulmonary valve is normal in structure. There is no pulmonic valvular regurgitation. Great Vessels The aortic root is normal in size. IVC is dilated and collapses <50% with inspiration. Pericardium There is no pericardial effusion. <Conclusion> The left ventricle is normal size. LVEF is 55-60%. Pacemaker lead is present in the right ventricle. Left atrium is dilated. Right atrium is dilated. Pacemaker lead is present in the right atrium. The aortic valve is normal in structure. Aortic valve is calcified. Mild aortic regurgitation. Moderate aortic stenosis with a valve area of 1.0 The mitral valve is normal in structure. There is mitral annular calcification with heavy calcification present. Moderate mitral stenosis. The tricuspid valve is normal in structure. There is mild tricuspid regurgitation. Estimated PAP 57 mmHg. There is moderate pulmonary hypertension. The pulmonary valve is normal in structure. There is no pericardial effusion. <ELECTRONICALLY SIGNED> By: Melvin Betancur MD 08/22/19 1138 1138 1138 Melvin Betancur MD /INF
[2019-08-22 15:20] VITALS: BP 111/54
[2019-08-22 19:48] VITALS: BP 118/60
[2019-08-23 04:37] VITALS: BP 93/45
[2019-08-23 05:54] LABS: HEMATOCRIT 26.3 % (37.0-47.0); HEMOGLOBIN 7.9 gm/dL (12.0-15.0); MCH 21.8 pg (26.0-34.0); MCV 72.7 fL (80.0-100.0); PLATELET COUNT 295 thou/uL (150-400); RBC 3.61 mil/uL (4.20-5.00); WBC 6.9 thou/uL (4.0-11.0)
[2019-08-23 06:03] LABS: OBSERVED RETIC COUNT 2.23 % (0.6-2.6)
[2019-08-23 06:14] LABS: % SATURATION 4 % (20-39); IRON 16 ug/dL (50-170); TIBC 357 ug/dL (250-450)
[2019-08-23 06:33] LABS: ALBUMIN 3.1 g/dL (3.4-5.0); CALCIUM 8.4 mg/dL (8.5-10.1); CREATININE 1.3 mg/dL (0.6-1.0); MAGNESIUM 2.3 mg/dL (1.8-2.4); POTASSIUM 3.9 mmol/L (3.5-5.1); TOTAL BILIRUBIN 0.5 mg/dL (0.2-1.0); TOTAL PROTEIN 6.7 g/dL (6.4-8.2)
[2019-08-23 07:30] VITALS: BP 104/58
[2019-08-23 08:29] LABS: ANISOCYTOSIS 2+; HYPOCHROMASIA 2+; MICROCYTES 2+; PLATELET ESTIMATE NORMAL
[2019-08-23 14:44] VITALS: BP 126/49
[2019-08-23 20:11] VITALS: BP 123/55
[2019-08-24 07:17] VITALS: BP 92/49
[2019-08-24 09:02] LABS: HEMATOCRIT 26.8 % (37.0-47.0); HEMOGLOBIN 7.9 gm/dL (12.0-15.0); MCH 21.5 pg (26.0-34.0); MCHC 29.6 g/dL (28.0-37.0); MCV 72.7 fL (80.0-100.0); RBC 3.69 mil/uL (4.20-5.00); RDW 17.8 % (10.5-14.5); WBC 6.8 thou/uL (4.0-11.0)
[2019-08-24 10:21] VITALS: BP 109/56
[2019-08-24 10:27] VITALS: BP 109/56
[2019-08-24 12:15] VITALS: BP 109/56
== END 2019-08-24 11:34 | disposition home or self-care (01) | DRG 291 ==
LOC: ER 19:02 → 4W 08-22 00:28 → EROBS 08-22 00:28 → 4W 08-22 00:52
PROVIDERS: Emergency Medicine; Nurse Practitioner; Nurse Practitioner Adult Health; Nurse Practitioner Family; ADMIT Hospitalist; ATTEND Hospitalist
PROC: 4B02XSZ Measurement of Cardiac Pacemaker, External Approach (ICD-10-PCS; principal; 2019-08-22)
DX: I11.0 Hypertensive heart disease with heart failure (principal); J96.20 Acute and chronic respiratory failure, unspecified whether with hypoxia or hypercapnia; I50.33 Acute on chronic diastolic (congestive) heart failure; Z20.828 Contact with and (suspected) exposure to other viral communicable diseases; I25.10 Atherosclerotic heart disease of native coronary artery without angina pectoris; I49.5 Sick sinus syndrome; E78.5 Hyperlipidemia, unspecified; I48.0 Paroxysmal atrial fibrillation; E78.00 Pure hypercholesterolemia, unspecified; K59.00 Constipation, unspecified; D53.9 Nutritional anemia, unspecified; R32 Unspecified urinary incontinence; D50.9 Iron deficiency anemia, unspecified; E53.8 Deficiency of other specified B group vitamins; G47.33 Obstructive sleep apnea (adult) (pediatric); N19 Unspecified kidney failure; J44.9 Chronic obstructive pulmonary disease, unspecified; Z66 Do not resuscitate; M19.90 Unspecified osteoarthritis, unspecified site; Z95.0 Presence of cardiac pacemaker; Z79.01 Long term (current) use of anticoagulants; Z90.710 Acquired absence of both cervix and uterus
CPT/HCPCS: 10045

== ENCOUNTER → 2019-08-30 | Outpatient (CLI) | payer OTHER, BC ==
[~2019-08-30] MED LIST changes: +ASA81BEC PO; +LIPITOR40 MG PO
== END ==
LOC: SJCVC 14:17
PROVIDERS: ATTEND Internal Medicine Cardiovascular Disease
DX: R94.31 Abnormal electrocardiogram [ECG] [EKG] (principal); I45.4 Nonspecific intraventricular block; I11.0 Hypertensive heart disease with heart failure; I50.32 Chronic diastolic (congestive) heart failure; E78.00 Pure hypercholesterolemia, unspecified; I08.0 Rheumatic disorders of both mitral and aortic valves; I49.5 Sick sinus syndrome; J44.9 Chronic obstructive pulmonary disease, unspecified; Z79.899 Other long term (current) drug therapy; Z87.891 Personal history of nicotine dependence

== ENCOUNTER → 2019-09-18 | Outpatient (CLI) | payer OTHER, BC | LOC: SJCVC 12:15 | PROVIDERS: ATTEND Internal Medicine Cardiovascular Disease | DX: D64.9 Anemia, unspecified (principal) ==

== ENCOUNTER → 2019-10-17 | Outpatient (CLI) | payer OTHER, BC | LOC: SJCVC 13:40 | PROVIDERS: ATTEND Internal Medicine Cardiovascular Disease | DX: R53.83 Other fatigue (principal); D64.9 Anemia, unspecified; I48.0 Paroxysmal atrial fibrillation; E78.5 Hyperlipidemia, unspecified; J44.9 Chronic obstructive pulmonary disease, unspecified; Z79.899 Other long term (current) drug therapy ==

== ENCOUNTER → 2019-12-04 | Outpatient (CLI) | payer OTHER, BC | LOC: SJCVC 11:05 | PROVIDERS: ATTEND Internal Medicine Cardiovascular Disease | DX: Z45.02 Encounter for adjustment and management of automatic implantable cardiac defibrillator (principal); I45.4 Nonspecific intraventricular block; I48.0 Paroxysmal atrial fibrillation; E78.00 Pure hypercholesterolemia, unspecified; I11.9 Hypertensive heart disease without heart failure; I49.5 Sick sinus syndrome; D64.9 Anemia, unspecified; J44.9 Chronic obstructive pulmonary disease, unspecified; Z99.81 Dependence on supplemental oxygen ==

== ENCOUNTER → 2020-12-16 | Outpatient (CLI) | payer OTHER, BC | LOC: SJCVCIMAG 07:20 | PROVIDERS: ATTEND Internal Medicine Cardiovascular Disease | DX: I08.8 Other rheumatic multiple valve diseases (principal); I48.21 Permanent atrial fibrillation; E78.00 Pure hypercholesterolemia, unspecified; I08.0 Rheumatic disorders of both mitral and aortic valves; I49.5 Sick sinus syndrome; I50.32 Chronic diastolic (congestive) heart failure; I11.0 Hypertensive heart disease with heart failure; J44.9 Chronic obstructive pulmonary disease, unspecified; E78.5 Hyperlipidemia, unspecified; I27.20 Pulmonary hypertension, unspecified; Z99.81 Dependence on supplemental oxygen; Z87.891 Personal history of nicotine dependence; Z79.82 Long term (current) use of aspirin; Z72.89 Other problems related to lifestyle; Z79.899 Other long term (current) drug therapy; Z82.49 Family history of ischemic heart disease and other diseases of the circulatory system ==

== ENCOUNTER → 2021-01-07 | Outpatient (CLI) | payer OTHER, BC | LOC: RAD 12:50 | PROVIDERS: ATTEND Pediatrics | DX: J44.9 Chronic obstructive pulmonary disease, unspecified (principal); J84.89 Other specified interstitial pulmonary diseases; J90 Pleural effusion, not elsewhere classified; R09.89 Other specified symptoms and signs involving the circulatory and respiratory systems; I51.7 Cardiomegaly; R06.00 Dyspnea, unspecified ==

== ENCOUNTER 2021-03-29 18:57 | Inpatient (IN) | payer OTHER, BC ==
[~2021-03-29] VITALS: Ht 160 cm; Wt 55.0 kg
[2021-03-29 19:01] VITALS: BP 108/62
[2021-03-29 19:21] LABS: ABSOLUTE NEUTROPHILS 8.9 thou/uL (1.4-8.2); BASOPHILS 0.4 % (0.0-2.0); EOSINOPHILS 1.6 % (0.0-3.0); HEMATOCRIT 40.7 % (37.0-47.0); LYMPHOCYTES 7.1 % (24.0-44.0); MCH 28.6 pg (26.0-34.0); MCHC 32.1 g/dL (28.0-37.0); MCV 89.3 fL (80.0-100.0); MONOCYTES 7.5 % (1.0-8.0); PLATELET COUNT 205 thou/uL (150-400); POLYS 83.4 % (36.0-66.0); RBC 4.56 mil/uL (4.20-5.00); RDW 15.6 % (10.5-14.5); WBC 10.7 thou/uL (4.0-11.0)
[2021-03-29 19:54] LABS: ALBUMIN 3.2 g/dL (3.4-5.0); CREATININE 0.7 mg/dL (0.6-1.0); DIRECT BILIRUBIN 0.4 mg/dL (<0.1-0.2); POTASSIUM 4.7 mmol/L (3.5-5.1); TOTAL BILIRUBIN 1.3 mg/dL (0.2-1.0); TOTAL PROTEIN 7.3 g/dL (6.4-8.2)
[2021-03-29 20:02] LABS: CALCIUM 11.6 mg/dL (8.5-10.1)
[2021-03-29] MEDS ORDERED: SERTRALINE HCL100 MG PO (23:02)
[2021-03-29] MEDS ORDERED: RAYOS5 MG PO (23:03)
[2021-03-29] MEDS ORDERED: TORSEMIDE10 MG PO (23:04)
[2021-03-29] MEDS ORDERED: IRON325 M1 PO (23:04)
[2021-03-29] MEDS ORDERED: LIPITOR80 MG PO (23:05)
[2021-03-29] MEDS ORDERED: TOPROL XL100 MG PO (23:05)
[2021-03-29] MEDS ORDERED: COMBIVENT RESPIM4 GM (23:06)
[2021-03-29] MEDS ORDERED: KLOR-CON 1010 MEQ PO (23:07)
[2021-03-30] VITALS (16 sets, daily range): BP systolic 79–127; BP diastolic 43–95
--- NOTE | 2021-03-30 01:58 | NUR ---
PATIENT IS A NEW ADMISSION TO THE UNIT THIS SHIFT. SHE ARRIVED VIA CART FROM THE ER AND WAS TRANSFERRED TO THE BED WITHOUT INCIDENT. PATIENT IS ALERT AND ORIENTED BUT SLEEPY AND EXTREMELY HARD OF HEARING. PATIENT ARRIVED WITH HEART RATES IN EXCESS OF 160 BPM. CARDIZEM GTT INITIATED PER PROVIDERS ORDER. PATIENT IS MAINTAINED ON HOME DOSAGE OF OXYGEN VIA NASAL CANNULA. NO COMPLAINTS OF PAIN, MINIMAL COMPLAINTS OF NAUSEA. NURSE TO FULLY ADMIT PATIENT AND INITIATE PLAN OF CARE.
[2021-03-31 02:39] LABS: HEMATOCRIT 34.4 % (37.0-47.0); MCH 28.5 pg (26.0-34.0); MCHC 31.9 g/dL (28.0-37.0); MCV 89.2 fL (80.0-100.0); RBC 3.86 mil/uL (4.20-5.00); WBC 7.7 thou/uL (4.0-11.0)
[2021-03-31 03:07] LABS: ALBUMIN 2.4 g/dL (3.4-5.0); CALCIUM 10.4 mg/dL (8.5-10.1); CREATININE 0.8 mg/dL (0.6-1.0); MAGNESIUM 1.9 mg/dL (1.8-2.4); TOTAL BILIRUBIN 0.7 mg/dL (0.2-1.0); TOTAL PROTEIN 5.7 g/dL (6.4-8.2)
--- NOTE | 2021-03-31 05:00 | NUR ---
PT IS A&OX2-3 WITH CONFUSION AND FORGETFULNESS NOTED, DOES NOT REMEMBER THAT SHE IS HOSPITALIZED, NOT AT HER CARE FACILITY. ATTEMPTS TO GET OUT OF BED WITHOUT ASSISTANCE DESPITE FREQUENT REMINDERS. BED ALARM ON. VSS THROUGHOUT THE SHIFT. UP TO BSC WITH MINIMAL ASSIST X1. WILL CONTINUE TO OBSERVE FOR CHANGES
[2021-03-31 05:41] VITALS: BP 121/60
--- NOTE | 2021-03-31 07:39 | EKG ---
[address] [place] [address] ELECTROCARDIOGRAM REPORT Name: JORGE MADERA Room #: 218-P ADM IN M.R.#: [id number] Admission: 03/29/21 Attend Phys: Catarino Higuera DO Discharge: Date of : 34 Report #: [id number] [facility] ED Test Date: 2021-03-29 Test Time: 19:39:03 Pat Name: JORGE MADERA Department: Room: 218 Gender: F Software Design Manager: imelda : 1935 Requested By: Kit Cosby Order Number: [id number] MD: Truman Perez Measurements Intervals [place] Rate: 121 P: ND: QRS: -75 QRSD: 124 T: 102 QT: 340 QTc: 483 Interpretive Statements Atrial fibrillation Left bundle branch block Suspect IWMI Compared to ECG 03/29/2021 19:14:33 Left bundle-branch block now present Left ventricular hypertrophy no longer present Early repolarization no longer present Electronically Signed On 03-31-2021 7:39:17 HOTEL DESK CLERK by Truman Perez [email or web address] <ELECTRONICALLY SIGNED> By: Truman Perez MD, [facility] 03/31/21 0739 38 38 Truman Perez MD, FACC /EPI
--- NOTE | 2021-03-31 07:39 | EKG ---
[place] [address] [place] [address] ELECTROCARDIOGRAM REPORT Name: JORGE MADERA Room #: 218-P ADM IN M.R.#: [id number] Admission: 03/29/21 Attend Phys: Catarino Higuera DO Discharge: Date of : 34 Report #: [id number] [facility] ED Test Date: 2021-03-29 Test Time: 19:14:33 Pat Name: JORGE MADERA Department: Room: 218 Gender: F Rodeo Rider: : 1935 Requested By: Kit Cosby Order Number: [id number] MD: Truman Perez Measurements Intervals [place] Rate: 115 P: ME: QRS: -70 QRSD: 128 T: 104 QT: 330 QTc: 457 Interpretive Statements Atrial fibrillation IVCD, consider atypical RBBB LVH with secondary repolarization abnormality Inferior infarct, acute Compared to ECG 08/21/2019 21:21:06 Left ventricular hypertrophy now present Early repolarization now present Myocardial infarct finding now present Ventricular-paced complex(es) or rhythm no longer present Electronically Signed On 03-31-2021 7:38:47 MR TEACHER by Truman Perez [email or web address] <ELECTRONICALLY SIGNED> By: Truman Perez MD, FACC 03/31/21 0738 13 13 Truman Perez MD, [facility] /EPI
[2021-03-31 09:10] VITALS: BP 116/80
--- NOTE | 2021-03-31 12:18 | NUR ---
I have reviewed the documentation by MICHAEL LEE from 03/31/21 to 03/31/21 and I concur with it. NATI BERNSTEIN, PT, DPT
[2021-03-31 13:18] LABS: URINE BILIRUBIN NEGATIVE (Negative); URINE BLOOD NEGATIVE (Negative); URINE CLARITY CLEAR; URINE COLOR YELLOW; URINE GLUCOSE-RANDOM* NEGATIVE (Negative); URINE KETONES NEGATIVE (Negative); URINE LEUKOCYTES-REFLEX NEGATIVE (Negative); URINE PROTEIN (DIPSTICK) NEGATIVE (Negative); URINE SPECIFIC GRAVITY 1.015 (1.005-1.035); URINE UROBILINOGEN 0.2 E.U./dl (0.2-1.0)
[2021-03-31 13:21] LABS: URINE NITRITE-REFLEX POSITIVE (Negative)
[2021-03-31 13:37] LABS: SQUAMOUS 0-3 Few /LPF (0-3)
[2021-03-31 13:38] LABS: BACTERIA-REFLEX 1-9 Few /HPF (None Seen); CASTS None Seen /LPF (None Seen); CRYSTALS None Seen /LPF (None Seen); URINE RBC None Seen /HPF (NONE SEEN); URINE WBC-REFLEX 0-5 Rare /HPF (0-5)
--- NOTE | 2021-03-31 14:26 | 2DMMODE ---
[facility] [place] [address] 2 D/M-MODE ECHOCARDIOGRAM Name: JORGE MADERA Room #: 218-P ADM IN M.R.#: [id number] Admission: 03/29/21 Attend Phys: Catarino Higuera DO Discharge: Date of : 34 Report #: [id number] THIS REPORT FOR: cc: Wilberto Meadows Steven F. DO Lammoglia,Melvin Flores MD ~ APPROVED REPORT Study performed: 03/31/2021 13:25:06 EXAM: Comprehensive 2D, Doppler, and color-flow Echocardiogram Patient Location: Bedside Room #: 218 Status: routine BSA: 1.55 HR: 78 bpm BP: 116/80 mmHg Rhythm: Atrial Fibrillation Other Information Study Quality: Good Indications COPD Atrial Fibrillation Pacemaker Hypertension/HDD 2D Dimensions LVOT Diam: 17.70 (18-24mm) IVC: 22.00 mm Aortic Valve AoV Peak Yasmany.: 3.53 m/s AO Peak Gr.: 49.76 mmHg LVOT Max P.35 mmHg AO Mean Gr.: 27.10 mmHg LVOT Mean P.87 mmHg AO V2 Mean: 2.39 m/s LVOT Max V: 1.61 m/s AO V2 VTI: 68.36 cm LVOT Mean V: 0.94 m/s KINJAL (VTI): 1.26 cm2 LVOT V1 VTI: 34.90 cm KINJAL Vmax: 1.12 cm2 SV (LVOT): 85.79 mL Tricuspid Valve TR Peak Yasmany.: 3.43 m/s [facility] [address] [place] [address] 2 D/M-MODE ECHOCARDIOGRAM Name: JORGE MADERA Room #: 218-P [facility] IN .R.#: [id number] Admission: 03/29/21 Attend Phys: Catarino Higuera DO Discharge: Date of : 34 Report #: [id number] Peak Gr.: 47.09 mmHg PA Pressure: 57.00 mmHg Left Ventricle The left ventricle is normal size. There is normal left ventricular wall thickness. The left ventricular systolic function is normal. The left ventricular ejection fraction is within the normal range. LVEF is 60-65%. This study is not technically sufficient to allow evaluation of the LV diastolic function due to atrial fibrillation. Right Ventricle The right ventricle is normal size. The right ventricular systolic function is normal. Pacemaker lead is present in the right ventricle. Atria Left atrium is dilated. Right atrium is dilated. Pacemaker lead is present in the right atrium. Aortic Valve The aortic valve is normal in structure. Aortic valve is calcified. No aortic regurgitation is present. Moderate aortic stenosis. Calculated aortic valve area is 1.1 cm2 with maximum pressure gradient of 50 mmHg and mean pressure gradient of 27 mmHg. Mitral Valve The mitral valve is normal in structure. Mild mitral regurgitation. No evidence of mitral valve stenosis. Tricuspid Valve The tricuspid valve is normal in structure. There is moderate tricuspid regurgitation. Estimated PAP 57 mmHg. There is moderate pulmonary hypertension. Pulmonic Valve The pulmonary valve is normal in structure. There is no pulmonic valvular regurgitation. Great Vessels The aortic root is normal in size. IVC is dilated and collapses <50% with inspiration. Pericardium There is no pericardial effusion. <Conclusion> [facility] [address] [address] 2 D/M-MODE ECHOCARDIOGRAM Name: JORGE MADERA Room #: [facility] ADM IN M.R.#: [id number] Admission: 03/29/21 Attend Phys: Catarino Higuera DO Discharge: Date of : 34 Report #: [id number] The left ventricle is normal size. LVEF is 60-65%. The right ventricle is normal size. Pacemaker lead is present in the right ventricle. Left atrium is dilated. Right atrium is dilated. Pacemaker lead is present in the right atrium. The aortic valve is normal in structure. Aortic valve is calcified. Moderate aortic stenosis. Calculated aortic valve area is 1.1 cm2 with maximum pressure gradient of 50 mmHg and mean pressure gradient of 27 mmHg. The mitral valve is normal in structure. 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 The tricuspid valve is normal in structure. There is moderate tricuspid regurgitation. Estimated PAP 57 mmHg. There is moderate pulmonary hypertension. The pulmonary valve is normal in structure. The aortic root is normal in size. There is no pericardial effusion. <ELECTRONICALLY SIGNED> By: Melvin Betancur MD 03/31/21 1426 1426 1426 Melvin Betancur MD /INF
--- NOTE | 2021-03-31 14:48 | NUR ---
PATIENT ADMITTED FOR AFIB RVR, N/V/D X1 WEEK, WEAKNESS. CHART REVIEWED AND DISCUSSED WITH CARE TEAM. CM CALLED PTS DAUGHTER MODESTA AND UNABLE TO REACH. CM CALLED TO SPEAK WITH PTS SON NADEEM VIA PHONE. HE INFORMED CM PT LIVES AT HOME ALONE AT [facility]. HE REPORTS PT RECENTLY BEGAN RECEIVING HELP FROM [facility] SOME PT TO HELP PT WITH GETTING UP AND DRESSED. PTS SON REPORTS THEY HAVE BEEN TRANSITIONING MOVING PT INTO [place]. HOWEVER, HE FEELS WITH HER NOT TAKING HER MEDICATIONS AND ISSUES WITH PTS HEALTH THEY MAY NEED TO LOOK INTO A HIGHER LEVEL OF CARE SHE HAS BEEN SAFE TO BE HOME ALONE. AWAITING THERAPY RECOMMENDATIONS. SON REPORTS PTS BASELINE OF HOME O2 IS 4L/NC AND [facility]ED [facility]. SON REPORTS PTS PCP IS DR MOR[facility]. SON DENIES PT HAVING HH OR HAD SNF BEFORE. HE REPORTS SHE DID DO REHAB HERE AT [facility] IN THE PAST. PTS SON REPORTS HIS WORKS AT [employer] AND ALSO A GOOD CONTACT. HER NAME IS VICKY [phone]. CM AWAITING THERAPY RECOMMENDATIONS FOR DC PLANNING. CM FOLLOWING.
[2021-03-31 16:36] VITALS: BP 121/86
[2021-03-31 20:01] VITALS: BP 124/48
[2021-04-01 03:10] VITALS: BP 122/43
--- NOTE | 2021-04-01 04:07 | NUR ---
Assumed pt care at 1900. Pt is alert, confused. No sign of distress noted. Pt if laying in bed. Fall precaution in place. Assessment completed and documented. Denies pain. Vital signs stable. Scheduled meds administered to pt. Tolerated PO intake. No further needs at this time. Continue to monitor.
[2021-04-01 07:35] VITALS: BP 117/47
[2021-04-01 11:45] VITALS: BP 149/89
--- NOTE | 2021-04-01 12:18 | NUR ---
Assumed care of pt this AM. Pt is oriented to self & year only. Pt drowsy, difficult to arouse. Pt daughter in law called this nurse this morning stating that pt started seeing things last night when she was visiting & is worried about patient. Concern addressed w/ physician. By 1200, pt still has not urinated. Bladder scanned w/ 300mL, tender to palpation, otherwise no complaints. Pt w/ increased confusion throughout the day. Vpaced, Afib on the monitor. Pt on 4L NC which is baseline. Provider notified regarding bladder & no addt. orders received. High fall precautions in place. Frequent rounding.
--- NOTE | 2021-04-01 16:27 | NUR ---
CHART REVIEWED AND DISCUSSED WITH CARE TEAM. PT CONTINUES WITH STROKE WORKUP AND IV ABTS. PT REMAINS CONFUSED AT THIS TIME. CM STILL AWAITING PT/OT THERAPY ORDERS FOR DC PLANNING. PT VARIENCED THIS DAY R/T PT CONFUSION. CM WILL CONTINUE TO FOLLOW FOR DC PLANNING.
[2021-04-01 17:00] VITALS: BP 135/88
[2021-04-01 20:00] VITALS: BP 135/72
--- NOTE | 2021-04-02 03:55 | NUR ---
RECEIVED PATIENT AT 1900H.ASSESSMENT DONE CHARTED.MEDS GIVEN CHARTED.ALL NEEDS ATTENDED.TO CONTINOUSLY MONITOR.
[2021-04-02 04:00] VITALS: BP 140/74
[2021-04-02 04:27] LABS: HEMATOCRIT 36.2 % (37.0-47.0); HEMOGLOBIN 11.8 gm/dL (12.0-15.0); MCH 28.9 pg (26.0-34.0); MCHC 32.5 g/dL (28.0-37.0); MCV 89.1 fL (80.0-100.0); RBC 4.07 mil/uL (4.20-5.00); RDW 14.9 % (10.5-14.5)
[2021-04-02 04:59] LABS: ALBUMIN 2.5 g/dL (3.4-5.0); CALCIUM 10.2 mg/dL (8.5-10.1); CREATININE 0.7 mg/dL (0.6-1.0); PHOSPHORUS 2.8 mg/dL (2.5-4.9); POTASSIUM 3.4 mmol/L (3.5-5.1)
[2021-04-02 07:14] VITALS: BP 138/68
--- NOTE | 2021-04-02 11:30 | NUR ---
SPOKE WITH MD TO LET HIM KNOW THAT FAMILY WAS LEAVING. HE WILL ATTEMPT TO CALL THEM AGAIN.
[2021-04-02 11:35] VITALS: BP 134/72
--- NOTE | 2021-04-02 14:43 | NUR ---
CHART REVIEWED AND DISCUSSED WITH CARE TEAM. CM SPOKE TO [facility] WHO INDICATED THEY ARE AWARE PT IS HERE. CLINICAL UPDATES FAXED TO [facility] AT THIS TIME. THEY INDICATED THEY WOULD REVIEW SNF REFERRAL AND LET CM KNOW OF ACCEPTANCE/DENIAL. CM ALSO SPOKE TO [facility] OT RECOMMEND REHAB. THEY WILL EVAL. STILL AWAITING PT EVAL. HAS BEEN VARIENCED X 2 R/T CONFUSION. PT WILL MOST LIKELY NEED SNF ONCE MEDICALLY STABLE TO DC. SNF REFERRAL SENT. CM CALLED TO UPDATE PTS SON NADEEM AND LEFT MESSAGE FOR RETURN CALL. CM FOLLOWING FOR DC PLANNING.
[2021-04-02 15:30] VITALS: BP 140/95
--- NOTE | 2021-04-02 17:03 | NUR ---
ASSUMED CARE OF PATIENT AT 0700. PATIENT ALERT TO SELF, DROUSY ALL DAY, UNABLE TO GIVE PO MEDICATIONS THIS MORNING. REMAINS AFIB ON TELE AND ON 4LNC. PUREWICK IN PLACE AND PATENT. DR. JASON AND RYLEY DEVI ARE AWARE OF PATIENT CONDITION. PATIENT NOT PROGRESSING TOWARD POC.
[2021-04-02 19:08] VITALS: BP 153/74
[2021-04-02 19:33] VITALS: BP 142/79
--- NOTE | 2021-04-02 21:23 | NUR ---
PT SLEEPING IN BED, EASILY AROUSED FOR ASSESSMENT AND VS. O2 PER NC 4L. PALE SKIN TONE. PURWICK INTACT. IVF INTACT. BED ALARM ON.
[2021-04-03 04:02] VITALS: BP 154/82
[2021-04-03 05:06] LABS: ALBUMIN 2.4 g/dL (3.4-5.0); CALCIUM 10.2 mg/dL (8.5-10.1); CREATININE 0.6 mg/dL (0.6-1.0); MAGNESIUM 1.7 mg/dL (1.8-2.4); POTASSIUM 3.1 mmol/L (3.5-5.1); TOTAL BILIRUBIN 0.7 mg/dL (0.2-1.0); TOTAL PROTEIN 5.5 g/dL (6.4-8.2)
[2021-04-03 07:01] VITALS: BP 149/90
[2021-04-03 11:02] VITALS: BP 139/75
[2021-04-03 15:22] VITALS: BP 122/76
--- NOTE | 2021-04-03 15:41 | NUR ---
ASSUMED CARE OF PATIENT AT 0700. PATIENT ALERT TO SELF AND EXTREMELY DROUSY. MEDICATION GIVEN THIS MORNING BUT UNABLE TO GET PATIENT TO WAKE UP ENOUGH TO SAFELY GIVE MEDICATION THIS AFTERNOON. PATIENT HAS NOT WOKEN UP TO EAT BREAKFAST OR LUNCH TODAY. ORDER TO HOLD AMIO OBTAINED AFTER AMIO GIVEN THIS MORNING. MAGNESIUM AT 1.7 SO MAGNESIUM SULFATE INFUSED THIS MORNING WITH LAB REDRAWS DUE TOMORROW. POTASSIUM AT 3.1 WITH POTASSIUM TO START TOMORROW MORNING. WILL REQUEST A DOSE THIS AFTERNOON IF PATIENT WAKES UP AT DINNER TIME SHE DID YESTERDAY. CM WORKING ON GETTING PATIENT BACK TO [facility] BUT TO SKILLED INSTEAD OF INDEPENDENT LIVING. PATIENT NOT PROGRESSING TOWARD POC.
--- NOTE | 2021-04-03 16:52 | NUR ---
PT IS PROGRESSING. ANTICIPATING THAT PT WILL BE GOING TO [facility] SNF ONCE MEDICALLY STABLE. CM FOLLOWING REGARDING DC PLANNING.
[2021-04-03 19:35] VITALS: BP 119/57
[2021-04-04 04:26] LABS: HEMOGLOBIN 12.3 gm/dL (12.0-15.0); MCH 28.5 pg (26.0-34.0); MCHC 32.3 g/dL (28.0-37.0); MCV 88.2 fL (80.0-100.0); RBC 4.31 mil/uL (4.20-5.00); RDW 15.5 % (10.5-14.5); WBC 7.8 thou/uL (4.0-11.0)
[2021-04-04 04:28] LABS: ALBUMIN 2.3 g/dL (3.4-5.0); CALCIUM 9.4 mg/dL (8.5-10.1); CREATININE 0.7 mg/dL (0.6-1.0); MAGNESIUM 2.3 mg/dL (1.8-2.4); PHOSPHORUS 2.6 mg/dL (2.6-4.7)
[2021-04-04 04:41] LABS: POTASSIUM 3.7 mmol/L (3.5-5.1)
[2021-04-04 04:50] VITALS: BP 170/92
[2021-04-04 08:00] VITALS: BP 135/65
[2021-04-04 11:07] LABS: KAPPA/LAMBDA RATIO 1.24 (0.26-1.65); LAMBDA FREE LIGHT CHAINS 22.5 mg/L (5.7-26.3)
[2021-04-04 11:55] VITALS: BP 107/57
--- NOTE | 2021-04-04 13:09 | NUR ---
CARE TEAM INDICATED THAT PT WILL BE HERE OVER WEEKEND. CM CALLED AND NOTIFIED ADMISSIONS AT [facility]. CM FAXED CLINICAL UPDATE. CM FOLLOWING REGARDING DC PLANNING.
[2021-04-04 14:08] LABS: GLOBULIN TOTAL 2.7 g/dL (2.2-3.9); M-SPIKE Not Observed g/dL (Not Observed)
--- NOTE | 2021-04-04 14:52 | NUR ---
I have reviewed the documentation by MICHAEL LEE from 04/04/21 to 04/04/21 and I concur with it. NATI BERNSTEIN, PT, DPT
[2021-04-04 15:45] VITALS: BP 133/76
[2021-04-04 20:15] VITALS: BP 123/55
[2021-04-05 04:45] VITALS: BP 130/70
--- NOTE | 2021-04-05 05:59 | NUR ---
PT IS A&OX2-3, PLEASANT, COOPERATIVE, AND FORGETFUL. SHE WAS SLEEPY THIS SHIFT, AND DID SLEEP THROUGHOUT MOST OF THE NIGHT, THOUGH WAS EASILY ROUSABLE FOR MEDICATION ADMINISTRATION AND CARES. PUREWICK IN PLACE AND IS POSITIONALLY FUNCTION, THOUGHT PT WAS INCONTINENT OF URINE X2. AFIB/FLUTTER NOTED ON DIRECTOR OF CORPORATE REAL ESTATE. PLAN TO ENCOURAGE PT TO WORK WITH PT/OT IN HOPES OF SNF PLACEMENT AT [facility] THIS WEEK. WILL CONTINUE TO OBSERVE FOR CHANGES.
[2021-04-05 08:21] VITALS: BP 142/71
[2021-04-05 12:03] VITALS: BP 130/71
[2021-04-05 15:36] VITALS: BP 152/70
--- NOTE | 2021-04-05 18:15 | NUR ---
ASSUMED PATIENT CARE THIS AM AT 0700. PATIENT WAS CONCERNED OF HOW LONG IT HAD BEEN SINCE SHE HAD A BOWEL MOVEMENT, PHYSICIAN WAS CONTACTED AND MEDICATION ORDERS RECEIVED. AFTER RECEIVING MEDICATION PATIENT HAD A SMALL BOWEL MOVEMENT THIS AFTERNOON. PATIENT HAD 600MLS OF URINE OUT PRIOR TO NOON AFTER NOON THERE WAS LESS THAN 150MLS OF URINE OUT AND PATIENT WAS COMPLAING OF ABDOMINAL DISCOMFORT. BLADDER SCANNED PATIENT SHOWING 774MLS. PHYSICIAN CONTACTED AND ORDER WAS PLACED FOR TONEY. AFTER TONEY PLACEMENT PATIENT STATED THE PAIN WAS RELIEVED.
[2021-04-05 20:15] VITALS: BP 130/67
[2021-04-05 21:47] LABS: ALBUMIN 2.5 g/dL (3.4-5.0); CALCIUM 8.1 mg/dL (8.5-10.1)
[2021-04-05 21:59] LABS: CALCIUM 8.1 mg/dL (8.5-10.1); CREATININE 0.7 mg/dL (0.6-1.0); PHOSPHORUS 1.6 mg/dL (2.5-4.9)
[2021-04-06 04:24] LABS: ALBUMIN 2.4 g/dL (3.4-5.0); CALCIUM 8.2 mg/dL (8.5-10.1); CREATININE 0.7 mg/dL (0.6-1.0); MAGNESIUM 2.3 mg/dL (1.8-2.4); POTASSIUM 3.9 mmol/L (3.5-5.1); TOTAL BILIRUBIN 0.5 mg/dL (0.2-1.0); TOTAL PROTEIN 5.5 g/dL (6.4-8.2)
[2021-04-06 04:45] VITALS: BP 142/64
[2021-04-06 08:26] VITALS: BP 172/86
[2021-04-06 11:32] VITALS: BP 127/62
[2021-04-06 15:15] VITALS: BP 123/74
--- NOTE | 2021-04-06 18:26 | NUR ---
PT IS AXOX4, PLEASANT; VSS, AFEBRILE, AFIB/APACE ON THE MONITOR. PT IS [place], BUT DENIES PAIN, ABLE TO MAKE NEEDS KNOWN. PT DTR AT THE BEDSIDE. DR JASON CONSULTED. POC IS TO CONTINUE PT ON DIURETICS; NO ABX; MONITOR FOR URINARY RETENTION, BP. FALL PRECAUTIONS IN PLACE. NO CONCERNS AT THIS TIME.
[2021-04-06 20:00] VITALS: BP 104/49; BP 129/60
[2021-04-07 00:20] VITALS: BP 104/49
[2021-04-07 04:00] VITALS: BP 115/62
[2021-04-07 09:01] VITALS: BP 130/58
[2021-04-07 10:07] LABS: CALCIUM IONIZED* 5.4 mg/dL (4.5-5.6)
--- NOTE | 2021-04-07 11:27 | NUR ---
CHART REVIEWED AND DISCUSSED WITH CARE TEAM. CM CALLED AND SPOKE TO PTS SON NADEEM AND UPDATED ON PLAN FOR DISCHARGE. CLINICAL UPDATES SENT TO [facility] THIS DAY. PLAN FOR PT TO DC TO [facility] ONCE MEDICALLY STABLE. POSSIBLY THIS WEDNESDAY. CM WILL CONTINUE TO FOLLOW FOR DC PLANNING.
[2021-04-07 12:00] VITALS: BP 109/73
[2021-04-07 16:02] VITALS: BP 119/52
--- NOTE | 2021-04-07 16:55 | NUR ---
I have reviewed the documentation by MICHAEL LEE from 04/07/21 to 04/07/21 and I concur with it. NATI BERNSTEIN, PT, DPT
[2021-04-07 19:14] VITALS: BP 109/60
[2021-04-11 11:21] LABS: 25-HYDROXY TOTAL 44.5 ng/mL (30.0-100.0)
== END 2021-04-08 | DRG 291 ==
LOC: ER 18:57 → 2N 22:27 → EROBS 22:27 → 2N 03-30 00:27
PROVIDERS: Hospitalist; Internal Medicine; Student in an Organized Health Care Education/Training Program; ADMIT Pediatrics; ATTEND Pediatrics
DX: I11.0 Hypertensive heart disease with heart failure (principal); I50.33 Acute on chronic diastolic (congestive) heart failure; J96.21 Acute and chronic respiratory failure with hypoxia; K57.32 Diverticulitis of large intestine without perforation or abscess without bleeding; I48.21 Permanent atrial fibrillation; N39.0 Urinary tract infection, site not specified; Z20.822 Contact with and (suspected) exposure to COVID-19; Z66 Do not resuscitate; J44.9 Chronic obstructive pulmonary disease, unspecified; M19.90 Unspecified osteoarthritis, unspecified site; E78.00 Pure hypercholesterolemia, unspecified; H91.90 Unspecified hearing loss, unspecified ear; I49.5 Sick sinus syndrome; F41.1 Generalized anxiety disorder; D63.8 Anemia in other chronic diseases classified elsewhere; R53.81 Other malaise; R63.4 Abnormal weight loss; G47.00 Insomnia, unspecified; R32 Unspecified urinary incontinence; F32.A Depression, unspecified; E05.80 Other thyrotoxicosis without thyrotoxic crisis or storm; T46.2X5A Adverse effect of other antidysrhythmic drugs, initial encounter; I35.2 Nonrheumatic aortic (valve) stenosis with insufficiency; E83.52 Hypercalcemia; I27.20 Pulmonary hypertension, unspecified; F03.90 Unspecified dementia, unspecified severity, without behavioral disturbance, psychotic disturbance, mood disturbance, and anxiety; R33.9 Retention of urine, unspecified; I25.10 Atherosclerotic heart disease of native coronary artery without angina pectoris; Z96.21 Cochlear implant status; G47.33 Obstructive sleep apnea (adult) (pediatric); E78.5 Hyperlipidemia, unspecified; Z95.0 Presence of cardiac pacemaker; Z90.49 Acquired absence of other specified parts of digestive tract; Z90.710 Acquired absence of both cervix and uterus; Z90.722 Acquired absence of ovaries, bilateral; Z79.899 Other long term (current) drug therapy; Z79.82 Long term (current) use of aspirin; Z87.891 Personal history of nicotine dependence; Z68.21 Body mass index [BMI] 21.0-21.9, adult; Y92.89 Other specified places as the place of occurrence of the external cause
CPT/HCPCS: 10081